=== PATIENT | female | born 1995 | race African-American/Black ===

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

== ENCOUNTER 2017-01-10 10:08 | Emergency (ER) | payer BC ==
[~2017-01-10] VITALS: Ht 162.6 cm; Wt 113.4 kg
[~2017-01-10 10:08] MED LIST changes: +CEFUROXIME250 MG PO; +CLARITIN10 M2 PO; +LEVAQUIN 500 M500 M2 PO; +PREDNISONE 10 M10 MG PO
[2017-01-10] MEDS ORDERED: NAPROSYN500 MG PO (10:27)
== END 2017-01-10 10:27 | disposition home or self-care (01) ==
LOC: ER 10:08
DX: S80.02XA Contusion of left knee, initial encounter (principal); S40.012A Contusion of left shoulder, initial encounter; S40.011A Contusion of right shoulder, initial encounter; S30.0XXA Contusion of lower back and pelvis, initial encounter; J45.909 Unspecified asthma, uncomplicated; Z88.0 Allergy status to penicillin; V89.2XXA Person injured in unspecified motor-vehicle accident, traffic, initial encounter; Y93.89 Activity, other specified; Y92.89 Other specified places as the place of occurrence of the external cause; Y99.8 Other external cause status

== ENCOUNTER 2017-07-02 22:29 | Emergency (ER) | payer BC ==
[~2017-07-02] VITALS: Ht 165.1 cm; Wt 111.1 kg
[~2017-07-02 22:29] MED LIST changes: +NAPROSYN500 MG PO
[2017-07-02] MEDS ORDERED: EXCEDRIN CAPLE1 EACH PO (22:40)
[2017-07-03 01:17] VITALS: BP 139/79
== END 2017-07-03 01:18 | disposition home or self-care (01) ==
LOC: ER 22:29
DX: R51 Headache (principal); J45.909 Unspecified asthma, uncomplicated; Z88.0 Allergy status to penicillin

== ENCOUNTER 2018-04-11 15:02 | Emergency (ER) | payer BC ==
[~2018-04-11] VITALS: Ht 165.1 cm; Wt 104.3 kg
[~2018-04-11 15:02] MED LIST changes: +EXCEDRIN CAPLE1 EACH PO
[2018-04-11] MEDS ORDERED: CLARITIN10 MG PO (15:08)
[2018-04-11 17:21] VITALS: BP 143/97
[2018-04-11] MEDS ORDERED: KEFLEX500 M1 PO (23:51)
== END 2018-04-11 17:56 | disposition home or self-care (01) ==
LOC: ER 15:02
DX: R04.0 Epistaxis (principal); J45.909 Unspecified asthma, uncomplicated; Z88.0 Allergy status to penicillin

== ENCOUNTER 2018-04-11 19:59 | Emergency (ER) | payer BC ==
[~2018-04-11] VITALS: Ht 165.1 cm; Wt 104.3 kg
[~2018-04-11 19:59] MED LIST changes: +CLARITIN10 MG PO
[2018-04-11 23:12] LABS: ABSOLUTE NEUTROPHILS 6.2 thou/uL (1.4-8.2); BASOPHILS 0.6 % (0.0-2.0); HEMATOCRIT 29.1 % (37.0-47.0); MCH 26.1 pg (26.0-34.0); MCHC 34.5 g/dL (28.0-37.0); MCV 75.5 fL (80.0-100.0); MONOCYTES 7.6 % (1.0-8.0); PLATELET COUNT 254 thou/uL (150-400); POLYS 71.8 % (36.0-66.0); RBC 3.85 mil/uL (4.20-5.00); RDW 17.5 % (10.5-14.5); WBC 8.7 thou/uL (4.0-11.0)
[2018-04-11] MEDS ORDERED: KEFLEX500 M1 PO (23:51)
[2018-04-12 03:25] VITALS: BP 170/97
== END 2018-04-12 00:37 | disposition home or self-care (01) ==
LOC: ER 19:59
PROVIDERS: Emergency Medicine
DX: R04.0 Epistaxis (principal); J45.909 Unspecified asthma, uncomplicated; Z88.0 Allergy status to penicillin; R42 Dizziness and giddiness